=== PATIENT | male | born 1955 | race Hispanic/Latino ===

== ENCOUNTER 2017-05-11 13:06 | Inpatient (IN) | payer OTHER ==
[2017-05-09 15:53] VITALS: BMI 31.8
--- NOTE | 2017-05-16 20:09 | CP.PCM.HP ---
History of Present Illness - History of Present Illness History of Present Illness: 61 yo male with history of AFib, CAD, HLD, HTN, Gastric by pass, BPH, OA and Anemia had right THR on 05/09/2017 at [facility] after failing conservative management for 2 years. Patient was transferred to [facility] and was admitted in acute rehab for intensive physical therapy. Present on Admission - Present on Admission Any Indicators Present on Admission: No History of DVT/PE: No History of Uncontrolled Diabetes: No Urinary Catheter: No Decubitus Ulcer Present: No Review of Systems - Review of Systems All systems: reviewed and no additional remarkable complaints except (aside from those mentioned above, 12 point system review were negative by me) Past Patient History - Tetanus Immunizations Tetanus Immunization: Up to Date - Past Medical History & Family History Past Medical History?: Yes - Past Social History Smoking Status: Never Smoked Alcohol: None Drugs: Denies - CARDIAC Hx Cardiac Disorders: Yes ([place],) Hx Hypercholesterolemia: Yes Hx Hypertension: Yes Other/Comment: AFIB, stent - PULMONARY Hx Respiratory Disorders: Yes Hx Pneumonia: Yes (>15 years ago) - NEUROLOGICAL Hx Neurological Disorder: No - HEENT Hx HEENT Problems: No (WEARS RX GLASSES) - RENAL Hx Chronic Kidney Disease: No - ENDOCRINE/METABOLIC Hx Endocrine Disorders: No Hx Adrenal Cancer: No Hx Diabetes Insipidus: No Hx Diabetes Mellitus Type 1: No Hx Diabetes Mellitus Type 2: No Hx Hyperthyroidism: No Hx Hypothyroidism: No Hx Systemic Lupus Erythematosus: No - HEMATOLOGICAL/ONCOLOGICAL Hx Blood Disorders: Yes Hx Anemia: Yes (Iron Injection) Hx Blood Transfusions: Yes Hx Blood Transfusion Reaction: No Hx Bruising: No Hx Cancer: No Hx Chemotherapy: No Hx Cirrhosis: No Hx Gum Bleeding: No Hx Hemophilia: No Hx Hepatitis A: No Hx Hepatitis B: No Hx Hepatitis C: No Hx Leukemia: No Hx Metastesis: No Hx Shingles: No Hx Sickle Cell Disease: No Hx Unexplained Bleeding: No Hx von Willebrand's Disease: No - INTEGUMENTARY Hx Dermatological Problems: No Hx Basil Cell: No Hx Petersen: No Hx Cellulitis: No Hx Eczema: No Hx Melanoma: No Hx Psoriasis: No Hx Squamous Cell: No - MUSCULOSKELETAL/RHEUMATOLOGICAL Hx Falls: No Hx Osteoarthritis: Yes (R hip) Hx Unsteady Gait: Yes - GASTROINTESTINAL Hx Gastrointestinal Disorders: Yes (GASTRIC BAND,POLYPS,HIATAL HERNIA REPAIR,) Hx Gall Bladder Disease: Yes Hx Gastritis: Yes Hx Gastroesophageal Reflux: Yes Other/Comment: lap band surgery - GENITOURINARY/GYNECOLOGICAL Hx Genitourinary Disorders: Yes Hx Prostate Problems: Yes (enlarged,HAS PROSTATE BX.) - PSYCHIATRIC Hx Psychophysiologic Disorder: No Hx Substance Use: No - SURGICAL HISTORY Hx Surgeries: Yes (L KNEE ARTROSCOPY,HIATAL HERNIA REAPIR, 2 HEART STENTS.LAP BAND) Hx Coronary Stent: Yes (X2) - ANESTHESIA Hx Anesthesia: Yes Hx Anesthesia Reactions: No Hx Malignant Hyperthermia: No Has any member of the family had a problem w/ anesthesia?: No Meds Allergies/Adverse Reactions: Allergies Allergy/AdvReac Type Severity Reaction Status Date / Time shrimp Allergy ANAPHYLAXIS Verified 05/10/17 16:32 [facility] ANTISEPTIC Allergy Mild ITCHING Uncoded 05/09/17 14:40 Physical Exam - Constitutional Appears: No Acute Distress - Head Exam Head Exam: ATRAUMATIC - Eye Exam Eye Exam: absent: Scleral icterus - ENT Exam ENT Exam: Mucous Membranes Moist - Neck Exam Neck exam: Negative for: Meningismus - Respiratory Exam Respiratory Exam: absent: Rhonchi, Wheezes, Respiratory Distress - Cardiovascular Exam Cardiovascular Exam: REGULAR RHYTHM, +S1, +S2 - GI/Abdominal Exam GI & Abdominal Exam: Soft. absent: Tenderness - Rectal Exam Rectal Exam: Deferred - Extremities Exam Extremities exam: Positive for: pedal edema - Neurological Exam Neurological exam: Alert, Oriented x3 - Psychiatric Exam Psychiatric exam: Normal Affect - Skin Skin Exam: Dry, Intact Results - Vital Signs Recent Vital Signs: Last Vital Signs Temp Pulse Resp 20 05/16/17 18:02 BP Pulse Ox 98 05/16/17 18:02 Assessment & Plan (1) Status post total hip replacement, right Status: Acute Comment: admit in Acute Rehab. physiatry consult with Dr Herndon. refer to PT for evaluation and management. pain management with Codeine 30mg PO q 4hrs as needed (2) CAD (coronary artery disease) Status: Acute Comment: asymptomatic. continue ASA, Lipitor and Metoprolol (3) A-fib Status: Acute Comment: rate controlled at present but sometimes goes into RVR during therapy. continue Metoprolol 50mg PO q 8hrs. Coumadin 7.5mg PO daily. PT/INR in am. cardiology consult with Dr Tai (4) Anemia Status: Acute Comment: Hgb: 9.3, stable
[2017-05-16] MEDS ORDERED: Influenza Vaccine 18yr & older 0.5 ML/45 MCG SYR IM ONE (21:05)
[2017-05-17] MEDS ORDERED: Hydrogen Peroxide 237 ML SOL TP SCH (00:45)
[2017-05-17] MEDS: Pantoprazole 40 mg EC Tab PO SCH (05:37)
[2017-05-17 06:51] LABS: BASO % 0.4 % (0.0-2.0); EOS # 0.4 K/uL (0.0-0.7); EOS % 5.2 % (0.0-4.0); HEMATOCRIT 28.8 % (35.0-51.0); LYMPH # 1.1 K/uL (1.0-4.3); LYMPH % 14.5 % (20.0-40.0); MEAN CELL VOLUME 87.6 fl (80.0-94.0); MEAN CORPUSCULAR HEMOGLOBIN 28.5 pg (27.0-31.0); MEAN CORPUSCULAR HGB CONC 32.6 g/dL (33.0-37.0); MEAN PLATELET VOLUME 7.3 fl (7.2-11.7); MONO # 0.7 K/uL (0.0-0.8); MONO % 8.7 % (0.0-10.0); NEUT # 5.3 K/uL (1.8-7.0); NEUT % 71.2 % (50.0-75.0); NRBC % 0.3 % (0.0-0.0); RED CELL DISTRIBUTION WIDTH 18.7 % (11.5-14.5); WHITE BLOOD COUNT 7.5 K/uL (4.8-10.8)
[2017-05-17 06:55] LABS: BLOOD UREA NITROGEN 13 mg/dl (9-20); CALCIUM 8.4 mg/dL (8.4-10.2); CARBON DIOXIDE 28 mmol/L (22-30); CHLORIDE 101 mmol/L (98-107); GFR AFRICAN-AMERICAN > 60; GLUCOSE,RANDOM 106 mg/dL (75-110); POTASSIUM 4.1 MMOL/L (3.6-5.0); SODIUM 136 mmol/l (132-148)
[2017-05-17] MEDS: Hydrogen Peroxide 237 ML SOL TP SCH (06:59)
[2017-05-17] MEDS ORDERED: POLYETHYLENE GLYCOL 3350 17 GM/Dose PACKET PO SCH (09:00)
--- NOTE | 2017-05-17 12:12 | PSY.TMCNF ---
Nursing - Vital Signs Vital Signs (Last 8 hours): Vital Signs 05/17/17 05/17/17 05/17/17 05:37 08:21 08:28 Temperature 98.6 F Pulse Rate 74 85 Respiratory 20 Rate Blood Pressure 117/65 112/55 L 112/55 L O2 Sat by Pulse 98 Oximetry 05/17/17 09:00 Temperature 98.6 F Pulse Rate 85 Respiratory 20 Rate Blood Pressure 112/55 L O2 Sat by Pulse Oximetry Pain: 0 - Precautions: Precautions: Fall Prevention, Hip Precautions - Medications/Other Issues Comment: Pt is at low nutritional risk. No goals at this time- to be determined , if warranted, upon re-screen assessment. Re-screen assessment to be completed by 05/23/2017 per policy. - Consults Comment: Dr. Wilkinson - Skin Incision Site: Right hip Dressing Status: Clean, Dry, Intact Incision: Leni Intact, Sutures Intact, Inflamed Incision Line Treatment: (+) min SS drainage along I/L. Cleansed with 50/50 NS+ H2O2 and cover with DSD daily. - Toileting Toileting: Minimal Assistance - Bladder Management Bladder Pattern: Normal Voiding Method: Toilet, Urinal Bladder Management: Supervision Frequency of Accidents: 0 - Bowel Management Bowel Pattern: Normal Bowel Management: Supervision Frequency of Accidents: 0 - Transfers Transfers: Minimal Assistance - ADL's ADL's: Moderate Assistance - Pain Management Comments: Codeine and Tylenol PRN - Patient/Family Teaching Comments: None - Goals/Time Frame Comments: Per multidisciplinary care plan and goals - Provider Provider: Margot LAU RN CRRN Physical Therapy - Pain Management Techniques: Medication, Heat, Ice, Relaxation Techniques Occupational Therapy - Arousal/Attention/Orientation Patient Orientation: Person, Place, Time, Appropriate to Age, Appropriate to Situation - Pain Alleviating Techniques: Medication, Heat, Ice, Relaxation Techniques Nutrition - Current Diet Current Diet/ Supplement/ Feedings: Low fat/cholesterol, 2 gm Na diet - Appetite Percent Meal Consumed: 75-100% - Comments Comments: None - Assessment/Goals/Time Frame Assessment/Goals/Time Frame: Pt is at low nutritional risk. No goals at this time- to be determined, if warranted, upon re-screen assessment. Re-screen assessment to be completed by 05/23/2017 per policy. - Provider Provider: Mita Jaeger MS, RD Case Management - Discharge Plan Discharge Plan: Home alone Rehabilitation Plan - Treatment Plan Treatment Plan: Physical Therapy, Occupational Therapy, Dietary, Patient/Family Education - Recommendation Recommendation: Physical Therapy, Occupational Therapy, Dietary, Patient/Family Education - Discharge Plan Discharge to: Home
--- NOTE | 2017-05-17 12:53 | CP.PCM.PN ---
Subjective - Date & Time of Evaluation Date of Evaluation: 05/17/17 Time of Evaluation: 12:15 - Subjective Subjective: Pt is doing well, participated with PT Pain controlled Denies CP no SOB no cough no abd pain + constipationno bleeding INR today 2.9 Objective - Vital Signs/Intake and Output Vital Signs (last 24 hours): Temp Pulse Resp BP Pulse Ox 98.6 F 85 20 112/55 L 98 05/17/17 09:00 05/17/17 09:00 05/17/17 09:00 05/17/17 09:00 05/17/17 08:21 - Medications Medications: Current Medications Acetaminophen (Tylenol 325mg Tab) 325 mg PO Q4H PRN PRN Reason: Pain, moderate (4-7) Aspirin (Ecotrin) 81 mg PO DAILY [facility] Last Admin: 05/17/17 08:27 Dose: 81 mg Atorvastatin Calcium (Lipitor) 10 mg PO DIN [facility] Last Admin: 05/16/17 22:06 Dose: 10 mg Codeine Sulfate (Codeine) 30 mg PO Q4 PRN PRN Reason: Pain, moderate (4-7) Docusate Sodium (Colace) 100 mg PO TID [facility] Last Admin: 05/17/17 08:28 Dose: 100 mg Ferrous Sulfate (Feosol) 325 mg PO BID [facility] Finasteride (Proscar) 5 mg PO DAILY [facility] Last Admin: 05/17/17 08:31 Dose: 5 mg Folic Acid (Folic Acid) 2 mg PO DAILY [facility] Last Admin: 05/17/17 08:30 Dose: 2 mg Furosemide (Lasix) 40 mg PO DAILY [facility] Last Admin: 05/17/17 08:28 Dose: 40 mg Hydrogen Peroxide (Hydrogen Peroxide 237ml) 237 ml TP DAILY@0600 [facility] Last Admin: 05/17/17 06:59 Dose: 237 ml Metoprolol Tartrate (Lopressor) 50 mg PO Q8 [facility] Last Admin: 05/17/17 05:37 Dose: 50 mg Pantoprazole Sodium (Protonix Ec Tab) 40 mg PO 0600 [facility] Last Admin: 05/17/17 05:37 Dose: 40 mg Polyethylene Glycol (Miralax) 17 gm PO DAILY [facility] Tamsulosin HCl (Flomax) 0.4 mg PO DAILY [facility] Last Admin: 05/17/17 08:27 Dose: 0.4 mg Warfarin Sodium (Coumadin) 6 mg PO QD5 [facility] PRN Reason: Protocol Stop: 05/17/17 17:01 - Labs Labs: 05/17/17 06:00 05/17/17 06:00 PT 30.4 Seconds (9.8-13.1) H 05/17/17 06:00 INR 2.9 (0.9-1.2) H 05/17/17 06:00 - Constitutional Appears: No Acute Distress - Head Exam Head Exam: NORMAL INSPECTION, NORMOCEPHALIC - Eye Exam Eye Exam: EOMI, Normal appearance, PERRL Pupil Exam: NORMAL ACCOMODATION - ENT Exam ENT Exam: Mucous Membranes Moist, Normal External Ear Exam - Neck Exam Neck Exam: Full ROM. absent: Meningismus - Respiratory Exam Respiratory Exam: Respiratory Distress. absent: NORMAL BREATHING PATTERN - Cardiovascular Exam Cardiovascular Exam: Irregular Rhythm, +S1, +S2 - GI/Abdominal Exam GI & Abdominal Exam: Soft, Normal Bowel Sounds. absent: Tenderness - Extremities Exam Extremities Exam: Normal Capillary Refill. absent: Calf Tenderness Additional comments: Right hip with dressing - Back Exam Back Exam: Full ROM. absent: CVA tenderness (L), CVA tenderness (R) - Neurological Exam Neurological Exam: Alert, Awake, CN II-XII Intact, Oriented x3 Neuro motor strength exam: Left Upper Extremity: 5, Right Upper Extremity: 5, Left Lower Extremity: 5, Right Lower Extremity: 5 - Psychiatric Exam Psychiatric exam: Normal Affect, Normal Mood - Skin Skin Exam: Dry, Normal Color, Warm Assessment and Plan (1) Status post total hip replacement, right Status: Acute (2) Chronic atrial fibrillation Status: Chronic (3) CAD (coronary artery disease) Status: Chronic (4) Anemia Status: Chronic (5) BPH (benign prostatic hyperplasia) Status: Acute (6) DVT prophylaxis Status: Acute - Assessment and Plan (Free Text) Assessment: 61 y/o gent with hx of recent THR , right, Hx of A Fib on Coumadin, Chronic Anemia, HTN, CAD s/p Stent, Obesity s/p Lap Band , was admitted to Acute Rehab for Physical and Occupation therapy post THR> (1) Status post total hip replacement, right Status: Acute Psysiatry consult PT/OT Pain mgt INcentive spirometry (2) Chronic atrial fibrillation Status: Chronic Rate controlled Cardio consult cont Coumadin INR toady 2.9, will decrease Coumadin dose to 6 mg Monitor INR (3) CAD (coronary artery disease) Status: Chronic cont ASA, BB, Statin (4) Anemia, acute on chronic, ( worsned by recent surgery ) Status: Chronic start Ferrous cont FA (5) BPH (benign prostatic hyperplasia) Status: Acute cont Flomax and Proscar (6) DVT prophylaxis Pt is on Coumadin
--- NOTE | 2017-05-17 13:14 | CP.PCM.CON ---
Past Patient History - Tetanus Immunizations Tetanus Immunization: Up to Date - Past Medical History & Family History Past Medical History?: Yes - Past Social History Smoking Status: Never Smoked Alcohol: None Drugs: Denies - CARDIAC Hx Cardiac Disorders: Yes ([place],) Hx Hypercholesterolemia: Yes Hx Hypertension: Yes Other/Comment: AFIB, stent - PULMONARY Hx Respiratory Disorders: Yes Hx Pneumonia: Yes (>15 years ago) - NEUROLOGICAL Hx Neurological Disorder: No - HEENT Hx HEENT Problems: No (WEARS RX GLASSES) - RENAL Hx Chronic Kidney Disease: No - ENDOCRINE/METABOLIC Hx Endocrine Disorders: No Hx Adrenal Cancer: No Hx Diabetes Insipidus: No Hx Diabetes Mellitus Type 1: No Hx Diabetes Mellitus Type 2: No Hx Hyperthyroidism: No Hx Hypothyroidism: No Hx Systemic Lupus Erythematosus: No - HEMATOLOGICAL/ONCOLOGICAL Hx Blood Disorders: Yes Hx Anemia: Yes (Iron Injection) Hx Blood Transfusions: Yes Hx Blood Transfusion Reaction: No Hx Bruising: No Hx Cancer: No Hx Chemotherapy: No Hx Cirrhosis: No Hx Gum Bleeding: No Hx Hemophilia: No Hx Hepatitis A: No Hx Hepatitis B: No Hx Hepatitis C: No Hx Leukemia: No Hx Metastesis: No Hx Shingles: No Hx Sickle Cell Disease: No Hx Unexplained Bleeding: No Hx von Willebrand's Disease: No - INTEGUMENTARY Hx Dermatological Problems: No Hx Basil Cell: No Hx Petersen: No Hx Cellulitis: No Hx Eczema: No Hx Melanoma: No Hx Psoriasis: No Hx Squamous Cell: No - MUSCULOSKELETAL/RHEUMATOLOGICAL Hx Falls: No Hx Osteoarthritis: Yes (R hip) Hx Unsteady Gait: Yes - GASTROINTESTINAL Hx Gastrointestinal Disorders: Yes (GASTRIC BAND,POLYPS,HIATAL HERNIA REPAIR,) Hx Gall Bladder Disease: Yes Hx Gastritis: Yes Hx Gastroesophageal Reflux: Yes Other/Comment: lap band surgery - GENITOURINARY/GYNECOLOGICAL Hx Genitourinary Disorders: Yes Hx Prostate Problems: Yes (enlarged,HAS PROSTATE BX.) - PSYCHIATRIC Hx Psychophysiologic Disorder: No Hx Substance Use: No - SURGICAL HISTORY Hx Surgeries: Yes (L KNEE ARTROSCOPY,HIATAL HERNIA REAPIR, 2 HEART STENTS.LAP BAND) Hx Coronary Stent: Yes (X2) - ANESTHESIA Hx Anesthesia: Yes Hx Anesthesia Reactions: No Hx Malignant Hyperthermia: No Has any member of the family had a problem w/ anesthesia?: No Meds Allergies/Adverse Reactions: Allergies Allergy/AdvReac Type Severity Reaction Status Date / Time shrimp Allergy ANAPHYLAXIS Verified 05/10/17 16:32 [facility] ANTISEPTIC Allergy Mild ITCHING Uncoded 05/09/17 14:40 - Medications Medications: Current Medications Acetaminophen (Tylenol 325mg Tab) 325 mg PO Q4H PRN PRN Reason: Pain, moderate (4-7) Aspirin (Ecotrin) 81 mg PO DAILY [facility] Last Admin: 05/17/17 08:27 Dose: 81 mg Atorvastatin Calcium (Lipitor) 10 mg PO DIN [facility] Last Admin: 05/16/17 22:06 Dose: 10 mg Codeine Sulfate (Codeine) 30 mg PO Q4 PRN PRN Reason: Pain, moderate (4-7) Docusate Sodium (Colace) 100 mg PO TID [facility] Last Admin: 05/17/17 08:28 Dose: 100 mg Ferrous Sulfate (Feosol) 325 mg PO BID [facility] Finasteride (Proscar) 5 mg PO DAILY [facility] Last Admin: 05/17/17 08:31 Dose: 5 mg Folic Acid (Folic Acid) 2 mg PO DAILY [facility] Last Admin: 05/17/17 08:30 Dose: 2 mg Furosemide (Lasix) 40 mg PO DAILY [facility] Last Admin: 05/17/17 08:28 Dose: 40 mg Hydrogen Peroxide (Hydrogen Peroxide 237ml) 237 ml TP DAILY@0600 [facility] Last Admin: 05/17/17 06:59 Dose: 237 ml Metoprolol Tartrate (Lopressor) 50 mg PO Q8 [facility] Last Admin: 05/17/17 05:37 Dose: 50 mg Pantoprazole Sodium (Protonix Ec Tab) 40 mg PO 0600 [facility] Last Admin: 05/17/17 05:37 Dose: 40 mg Polyethylene Glycol (Miralax) 17 gm PO DAILY [facility] Tamsulosin HCl (Flomax) 0.4 mg PO DAILY [facility] Last Admin: 05/17/17 08:27 Dose: 0.4 mg Warfarin Sodium (Coumadin) 6 mg PO QD5 [facility] PRN Reason: Protocol Stop: 05/17/17 17:01 Results - Vital Signs Recent Vital Signs: Last Vital Signs Temp 98.6 F 05/17/17 09:00 Pulse 85 05/17/17 09:00 Resp 20 05/17/17 09:00 BP 112/55 L 05/17/17 09:00 Pulse Ox 98 05/17/17 08:21 - Labs Result Diagrams: 05/17/17 06:00 05/17/17 06:00 Labs: Laboratory Results - last 24 hr 05/17/17 05/17/17 05/17/17 06:00 06:00 06:00 WBC 7.5 RBC 3.29 L Hgb 9.4 L Hct 28.8 L MCV 87.6 MCH 28.5 MCHC 32.6 L RDW 18.7 H Plt Count 264 MPV 7.3 Neut % (Auto) 71.2 Lymph % (Auto) 14.5 L [place] % (Auto) 8.7 Eos % (Auto) 5.2 H Baso % (Auto) 0.4 Neut # 5.3 Lymph # 1.1 [place] # 0.7 Eos # 0.4 Baso # 0.0 PT 30.4 H INR 2.9 H Sodium 136 Potassium 4.1 Chloride 101 Carbon Dioxide 28 Anion Gap 11 BUN 13 Creatinine 0.7 L Est GFR ( Amer) > 60 Est GFR (Non-Af Amer) > 60 Random Glucose 106 Calcium 8.4
--- NOTE | 2017-05-17 19:32 | CP.PCM.PN ---
Subjective - Date & Time of Evaluation Date of Evaluation: 05/17/17 Time of Evaluation: 12:00 - Subjective Subjective: NO HIP PAIN Objective - Vital Signs/Intake and Output Vital Signs (last 24 hours): Temp Pulse Resp BP Pulse Ox 98.6 F 86 20 118/86 98 05/17/17 09:00 05/17/17 13:41 05/17/17 09:00 05/17/17 13:16 05/17/17 08:21 - Medications Medications: Current Medications Acetaminophen (Tylenol 325mg Tab) 325 mg PO Q4H PRN PRN Reason: Pain, moderate (4-7) Last Admin: 05/17/17 17:34 Dose: 325 mg Aspirin (Ecotrin) 81 mg PO DAILY [facility] Last Admin: 05/17/17 08:27 Dose: 81 mg Atorvastatin Calcium (Lipitor) 10 mg PO DIN [facility] Last Admin: 05/17/17 17:09 Dose: 10 mg Codeine Sulfate (Codeine) 30 mg PO Q4 PRN PRN Reason: Pain, moderate (4-7) Docusate Sodium (Colace) 100 mg PO TID [facility] Last Admin: 05/17/17 17:09 Dose: 100 mg Ferrous Sulfate (Feosol) 325 mg PO BID [facility] Last Admin: 05/17/17 17:11 Dose: 325 mg Finasteride (Proscar) 5 mg PO DAILY [facility] Last Admin: 05/17/17 08:31 Dose: 5 mg Folic Acid (Folic Acid) 2 mg PO DAILY [facility] Last Admin: 05/17/17 08:30 Dose: 2 mg Furosemide (Lasix) 40 mg PO DAILY [facility] Last Admin: 05/17/17 08:28 Dose: 40 mg Hydrogen Peroxide (Hydrogen Peroxide 237ml) 237 ml TP DAILY@0600 [facility] Last Admin: 05/17/17 06:59 Dose: 237 ml Metoprolol Tartrate (Lopressor) 50 mg PO Q8 [facility] Last Admin: 05/17/17 13:16 Dose: 50 mg Pantoprazole Sodium (Protonix Ec Tab) 40 mg PO 0600 [facility] Last Admin: 05/17/17 05:37 Dose: 40 mg Polyethylene Glycol (Miralax) 17 gm PO DAILY [facility] Tamsulosin HCl (Flomax) 0.4 mg PO DAILY [facility] Last Admin: 05/17/17 08:27 Dose: 0.4 mg - Labs Labs: 05/17/17 06:00 05/17/17 06:00 PT 30.4 Seconds (9.8-13.1) H 05/17/17 06:00 INR 2.9 (0.9-1.2) H 05/17/17 06:00 - Head Exam Head Exam: ATRAUMATIC, NORMAL INSPECTION - Eye Exam Eye Exam: Normal appearance Pupil Exam: NORMAL ACCOMODATION - ENT Exam ENT Exam: Normal Exam - Respiratory Exam Respiratory Exam: NORMAL BREATHING PATTERN - Cardiovascular Exam Cardiovascular Exam: REGULAR RHYTHM - GI/Abdominal Exam GI & Abdominal Exam: Normal Bowel Sounds - Rectal Exam Rectal Exam: NORMAL INSPECTION - Extremities Exam Extremities Exam: Normal Inspection Additional comments: right leg weakness - Neurological Exam Neurological Exam: Alert, Awake Neuro motor strength exam: Left Upper Extremity: 4, Right Upper Extremity: 4, Left Lower Extremity: 4, Right Lower Extremity: 3 - Psychiatric Exam Psychiatric exam: Normal Affect, Normal Mood - Skin Skin Exam: Normal Color Assessment and Plan (1) BPH (benign prostatic hyperplasia) Status: Acute (2) DVT prophylaxis Status: Acute (3) CAD (coronary artery disease) Status: Chronic (4) Chronic atrial fibrillation Status: Chronic (5) Multiple contusions Status: Acute (6) Status post total hip replacement, right Status: Acute (7) Anemia Status: Chronic Physiatry Overall Plan of Care - Overall Plan of Care Estimated Length of Stay in Weeks: 2 Rehab Impairment: Mobility, Gait Etiologic Diagnosis: Hip/Knee Surgery Rehab/Medical Prognosis: Fair - Anticipated Interventions Physical Therapy:: Yes Occupational Therapy:: Yes Recreational Therapy:: Yes - Therapy Goals Bed Mobility: Independent Ambulation: Independent Functional Positional Changes:: Independent - Discharge Plan Identification of Barriers to Discharge: Home Situation Discharge Destination: Home
[2017-05-18] MEDS: Pantoprazole 40 mg EC Tab PO SCH (06:19)
[2017-05-18] MEDS: Hydrogen Peroxide 237 ML SOL TP SCH (06:19)
--- NOTE | 2017-05-18 08:20 | CON ---
PHYSIATRY CONSULTATION DATE: 05/17/2017 The patient was seen 10:00 a.m. in the morning. HISTORY OF PRESENT ILLNESS: The patient is a 61-year-old white male with status post right total hip replacement with a history of osteoarthritis, ICD code of 08.51, also history of myocardial infarction, atrial fibrillation, coronary artery disease, history of anemia, gastritis, and hyperlipidemia. SOCIAL HISTORY: No history of drinking. No history of smoking. FAMILY HISTORY: Noncontributory. ALLERGIES: SHRIMP AND HOSPITAL ANTISEPTIC. PRECAUTIONS: Total hip precautions with weightbearing as tolerated as per discharge summary. MEDICATIONS: As per medical physician. 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 REVIEW OF SYSTEMS: Right lower extremity weakness. No other acute complaints at present. PHYSICAL EXAMINATION: VITAL SIGNS: Stable. NECK: Supple. CHEST: Symmetrical. HEART: Sounds S1 and S2. ABDOMEN: Area is benign. EXTREMITIES: No clubbing, cyanosis, or edema. NEUROLOGICAL: Short and long-term memory intact. Cranial nerves II through XII intact. Motor, both upper extremities and left lower extremity, tone normal, range of motion is functional, muscle strength is good. Right lower extremity, tone normal, range of motion is functional, muscle strength is 3+/5. Sensation to pin prick and light touch intact. Deep tendon reflexes 2+ bilaterally. Other systems are negative. IMPRESSION: For the patient is osteoarthritis of the right hip status post right total hip replacement, history of myocardial infarction, atrial fibrillation, coronary artery disease, anemia, gastritis, and hyperlipidemia. Estimated length of stay for this patient is 2 weeks. Anticipated discharge plan is go back to live at home with supportive services. Treatment plan for the patient is physical therapy, occupational therapy, recreational therapy, good range of motion, strengthening, transfers, ambulation, and gait training. PLAN: Is for discharge home, and also to write overall plan of care of the patient. Sathish Wilkinson MD
[2017-05-18] MEDS: POLYETHYLENE GLYCOL 3350 17 GM/Dose PACKET PO SCH (08:24)
[2017-05-19] MEDS: Pantoprazole 40 mg EC Tab PO SCH (06:56)
[2017-05-19] MEDS: Hydrogen Peroxide 237 ML SOL TP SCH (06:59)
[2017-05-19] MEDS: POLYETHYLENE GLYCOL 3350 17 GM/Dose PACKET PO SCH (08:35)
--- NOTE | 2017-05-19 15:03 | PN ---
SUBJECTIVE: The patient is feeling fine, no acute complaints at present. PHYSICAL EXAMINATION VITAL SIGNS: Stable. NECK: Supple. CHEST: Symmetrical. HEART: S1 and S2. ABDOMEN: Benign. EXTREMITIES: No clubbing, cyanosis or edema. IMPRESSION: Right total hip replacement secondary to osteoarthritis, atrial fibrillation, coronary artery disease, anemia. PLAN: To continue with physical and occupational therapy for range of motion, strengthening, transfers, ambulation, gait training. Monitor skin and blood pressure. Sathish Wilkinson MD
--- NOTE | 2017-05-19 15:36 | CP.PCM.PN ---
Subjective - Date & Time of Evaluation Date of Evaluation: 05/19/17 Time of Evaluation: 13:00 - Subjective Subjective: Patient states that he is feeling well today. No complaints. Denies any chest pain, sob, n/v/d. Says Tolerating physical therapy/occupational therapy well. He is able to ambulate with the assistance of a walker. Objective - Vital Signs/Intake and Output Vital Signs (last 24 hours): Temp Pulse Resp BP Pulse Ox 97.7 F 100 H 18 106/73 99 05/19/17 08:33 05/19/17 13:09 05/19/17 08:33 05/19/17 13:09 05/19/17 08:33 - Medications Medications: Current Medications Acetaminophen (Tylenol 325mg Tab) 325 mg PO Q4H PRN PRN Reason: Pain, moderate (4-7) Last Admin: 05/19/17 13:07 Dose: 325 mg Aspirin (Ecotrin) 81 mg PO DAILY [facility] Last Admin: 05/19/17 09:48 Dose: 81 mg Atorvastatin Calcium (Lipitor) 10 mg PO DIN [facility] Last Admin: 05/18/17 16:57 Dose: 10 mg Codeine Sulfate (Codeine) 30 mg PO Q4 PRN PRN Reason: Pain, severe (8-10) Docusate Sodium (Colace) 100 mg PO TID [facility] Last Admin: 05/19/17 13:08 Dose: 100 mg Ferrous Sulfate (Feosol) 325 mg PO BID [facility] Last Admin: 05/19/17 08:15 Dose: Not Given Finasteride (Proscar) 5 mg PO DAILY [facility] Last Admin: 05/19/17 08:35 Dose: 5 mg Folic Acid (Folic Acid) 2 mg PO DAILY [facility] Last Admin: 05/19/17 08:34 Dose: 2 mg Furosemide (Lasix) 40 mg PO DAILY [facility] Last Admin: 05/19/17 08:34 Dose: 40 mg Hydrogen Peroxide (Hydrogen Peroxide 237ml) 237 ml TP DAILY@0600 [facility] Last Admin: 05/19/17 06:59 Dose: 237 ml Metoprolol Tartrate (Lopressor) 50 mg PO Q8 [facility] Last Admin: 05/19/17 13:09 Dose: 50 mg Pantoprazole Sodium (Protonix Ec Tab) 40 mg PO 0600 [facility] Last Admin: 05/19/17 06:56 Dose: 40 mg Polyethylene Glycol (Miralax) 17 gm PO DAILY [facility] Last Admin: 05/19/17 08:35 Dose: 17 gm Tamsulosin HCl (Flomax) 0.4 mg PO DAILY [facility] Last Admin: 05/19/17 08:34 Dose: 0.4 mg Warfarin Sodium (Coumadin) 6 mg PO QD5 [facility] PRN Reason: Protocol Stop: 05/19/17 17:01 - Labs Labs: 05/17/17 06:00 05/17/17 06:00 PT 25.2 Seconds (9.8-13.1) H D 05/19/17 07:30 INR 2.4 (0.9-1.2) H D 05/19/17 07:30 - Additional Findings Additional findings: EXAM: Vitals stable and reviewed GEN: WDWN, alert, cooperative HEENT: NCAT, PERRL, EOMI Neck: supple, no lymphadenopathy CARDIO: +S1S2, RRR, NO M/R/G LUNG: CTAB, NO W/R/R ABD: soft, NT, ND, no masses, no HSM EXT: no edema, pedal pulses Neuro: AAOx3, Strength equal, bilateral UE/LE Psych: normal mood, normal affect Assessment and Plan - Assessment and Plan (Free Text) Assessment: 61 y/o gent with hx of recent THR , right, Hx of A Fib on Coumadin, Chronic Anemia, HTN, CAD s/p Stent, Obesity s/p Lap Band , was admitted to Acute Rehab for Physical and Occupation therapy post THR> (1) Status post total hip replacement, right Status: Acute Physiatry consult PT/OT Pain mgt- pain is well controlled Patient is using incentive spirometry (2) Chronic atrial fibrillation Status: Chronic Rate controlled Cardio consult cont Coumadin at 6 mg; was held yesterday due to supratherapeutic INR Monitor INR daily (3) CAD (coronary artery disease) Status: Chronic Continue ASA Beta terrell Statin (4) Anemia, acute on chronic, ( worsened by recent surgery ) Status: Chronic start Ferrous cont FA (5) BPH (benign prostatic hyperplasia) Status: Acute cont Flomax and Proscar (6) DVT prophylaxis Continue Coumadin- patient has therapeutic INR.
[2017-05-20] MEDS: Hydrogen Peroxide 237 ML SOL TP SCH (06:45)
[2017-05-20] MEDS: Pantoprazole 40 mg EC Tab PO SCH (06:45)
[2017-05-20] MEDS: POLYETHYLENE GLYCOL 3350 17 GM/Dose PACKET PO SCH (08:29)
--- NOTE | 2017-05-20 10:23 | CP.PCM.PN ---
Subjective - Date & Time of Evaluation Date of Evaluation: 05/20/17 Time of Evaluation: 10:23 - Subjective Subjective: no complaints no cp or sob hr controlled Objective - Vital Signs/Intake and Output Vital Signs (last 24 hours): Temp Pulse Resp BP Pulse Ox 98.2 F 65 20 141/63 100 05/20/17 08:26 05/20/17 08:05 05/20/17 08:05 05/20/17 08:31 05/20/17 08:05 - Medications Medications: Current Medications Acetaminophen (Tylenol 325mg Tab) 325 mg PO Q4H PRN PRN Reason: Pain, moderate (4-7) Last Admin: 05/20/17 08:26 Dose: 325 mg Aspirin (Ecotrin) 81 mg PO DAILY [facility] Last Admin: 05/20/17 08:32 Dose: 81 mg Atorvastatin Calcium (Lipitor) 10 mg PO DIN [facility] Last Admin: 05/19/17 17:06 Dose: 10 mg Codeine Sulfate (Codeine) 30 mg PO Q4 PRN PRN Reason: Pain, severe (8-10) Docusate Sodium (Colace) 100 mg PO TID [facility] Last Admin: 05/20/17 08:31 Dose: 100 mg Ferrous Sulfate (Feosol) 325 mg PO BID [facility] Last Admin: 05/20/17 08:29 Dose: Not Given Finasteride (Proscar) 5 mg PO DAILY [facility] Last Admin: 05/20/17 08:33 Dose: 5 mg Folic Acid (Folic Acid) 2 mg PO DAILY [facility] Last Admin: 05/20/17 08:33 Dose: 2 mg Furosemide (Lasix) 40 mg PO DAILY [facility] Last Admin: 05/20/17 08:31 Dose: 40 mg Hydrogen Peroxide (Hydrogen Peroxide 237ml) 237 ml TP DAILY@0600 [facility] Last Admin: 05/20/17 06:45 Dose: 237 ml Metoprolol Tartrate (Lopressor) 50 mg PO Q6 [facility] Pantoprazole Sodium (Protonix Ec Tab) 40 mg PO 0600 [facility] Last Admin: 05/20/17 06:45 Dose: 40 mg Polyethylene Glycol (Miralax) 17 gm PO DAILY [facility] Last Admin: 05/20/17 08:29 Dose: 17 gm Tamsulosin HCl (Flomax) 0.4 mg PO DAILY [facility] Last Admin: 05/20/17 08:32 Dose: 0.4 mg - Labs Labs: 05/17/17 06:00 05/17/17 06:00 PT 21.9 Seconds (9.8-13.1) H 05/20/17 08:15 INR 2.1 (0.9-1.2) H 05/20/17 08:15 - Constitutional Appears: Well - Head Exam Head Exam: ATRAUMATIC, NORMAL INSPECTION, NORMOCEPHALIC - Eye Exam Eye Exam: EOMI, Normal appearance, PERRL. absent: Conjunctival injection, Nystagmus, Periorbital swelling, Periorbital tenderness, Scleral icterus Pupil Exam: NORMAL ACCOMODATION, PERRL - ENT Exam ENT Exam: Mucous Membranes Moist, Normal Exam. absent: Mucous Membranes Dry, Normal External Ear Exam, Normal Oropharynx, TM's Normal Bilaterally - Neck Exam Neck Exam: Full ROM, Normal Inspection. absent: Lymphadenopathy, Meningismus, Tenderness, Thyromegaly - Respiratory Exam Respiratory Exam: Clear to Ausculation Bilateral, NORMAL BREATHING PATTERN. absent: Accessory Muscle Use, Chest Wall Tenderness, Decreased Breath Sounds, Prolonged Expiratory Phase, Rales, Rhonchi, Wheezes, Respiratory Distress, Stridor - Cardiovascular Exam Cardiovascular Exam: Irregular Rhythm, +S1, +S2, Murmur. absent: Bradycardia, Tachycardia, Clicks, Diastolic murmur, Gallop, REGULAR RHYTHM, JVD, RRR, Rubs, + S4 - GI/Abdominal Exam GI & Abdominal Exam: Soft, Normal Bowel Sounds. absent: Bruit, Distended, Firm , Guarding, Rigid, Tenderness, Diminished Bowel Sounds, Hernia, Hyperactive Bowel Sounds, Hypoactive Bowel Sounds, Organomegaly, Pulsatile Mass, Rebound, Mass - Rectal Exam Rectal Exam: Deferred. absent: Black Stool, Bloody Stool, Hemorrhoids, Fecal Impaction - Extremities Exam Extremities Exam: Full ROM, Normal Capillary Refill, Pedal Edema. absent: Calf Tenderness, Joint Swelling, Normal Inspection, Tenderness - Back Exam Back Exam: NORMAL INSPECTION. absent: CVA tenderness (L), CVA tenderness (R), Full ROM, muscle spasm, paraspinal tenderness, rash noted, tenderness, vertebral tenderness - Neurological Exam Neurological Exam: Alert, Awake, CN II-XII Intact, Normal Gait, Oriented x3. absent: Abnormal Gait, Altered, Motor Sensory Deficit, Reflexes Normal - Psychiatric Exam Psychiatric exam: Normal Affect, Normal Mood. absent: Agitated, Anxious, Depressed, Flat Affect, Homicidal Ideation, Manic, Suicidal Ideation - Skin Skin Exam: Dry, Intact, Normal Color, Warm. absent: Abrasion, Cyanosis, Diaphoretic, Erythema, Mottled, Pallor, Pallor, Petechiae, Rash, Urticaria, Vesicles Assessment and Plan (1) Poor iron absorption Status: Acute (2) CAD (coronary artery disease) Status: Chronic (3) Chronic atrial fibrillation Status: Chronic (4) Status post total hip replacement, right Status: Acute (5) Anemia Status: Chronic - Assessment and Plan (Free Text) Plan: NO CHANGES TO MEDS. DOING WELL. WILL SIGN OFF. PLEASE RECONSULT IF NEEDED. THANK YOU.
[2017-05-21] MEDS: Pantoprazole 40 mg EC Tab PO SCH (06:31)
[2017-05-21] MEDS: Hydrogen Peroxide 237 ML SOL TP SCH (06:41)
[2017-05-21] MEDS: POLYETHYLENE GLYCOL 3350 17 GM/Dose PACKET PO SCH (08:39)
[2017-05-22] MEDS: Pantoprazole 40 mg EC Tab PO SCH (06:15)
[2017-05-22] MEDS: Hydrogen Peroxide 237 ML SOL TP SCH (06:20)
[2017-05-22] MEDS: POLYETHYLENE GLYCOL 3350 17 GM/Dose PACKET PO SCH (08:30)
--- NOTE | 2017-05-22 14:34 | CP.PCM.PN ---
Subjective - Date & Time of Evaluation Date of Evaluation: 05/22/17 Time of Evaluation: 11:00 - Subjective Subjective: Pt seen and examined. Denied any complaint. Objective - Vital Signs/Intake and Output Vital Signs (last 24 hours): Temp Pulse Resp BP Pulse Ox 97.6 F 85 18 108/72 99 05/22/17 07:31 05/22/17 12:17 05/22/17 07:31 05/22/17 12:17 05/22/17 07:31 - Medications Medications: Current Medications Acetaminophen (Tylenol 325mg Tab) 325 mg PO Q4H PRN PRN Reason: Pain, moderate (4-7) Last Admin: 05/22/17 13:27 Dose: 325 mg Aspirin (Ecotrin) 81 mg PO DAILY [facility] Last Admin: 05/22/17 08:30 Dose: 81 mg Atorvastatin Calcium (Lipitor) 10 mg PO DIN [facility] Last Admin: 05/21/17 17:11 Dose: 10 mg Codeine Sulfate (Codeine) 30 mg PO Q4 PRN PRN Reason: Pain, severe (8-10) Docusate Sodium (Colace) 100 mg PO TID [facility] Last Admin: 05/22/17 12:18 Dose: 100 mg Finasteride (Proscar) 5 mg PO DAILY [facility] Last Admin: 05/22/17 08:29 Dose: 5 mg Folic Acid (Folic Acid) 2 mg PO DAILY [facility] Last Admin: 05/22/17 08:29 Dose: 2 mg Furosemide (Lasix) 40 mg PO DAILY [facility] Last Admin: 05/22/17 08:29 Dose: 40 mg Hydrogen Peroxide (Hydrogen Peroxide 237ml) 237 ml TP DAILY@0600 [facility] Last Admin: 05/22/17 06:20 Dose: 237 ml Metoprolol Tartrate (Lopressor) 50 mg PO Q6 [facility] Last Admin: 05/22/17 12:17 Dose: 50 mg Pantoprazole Sodium (Protonix Ec Tab) 40 mg PO 0600 [facility] Last Admin: 05/22/17 06:15 Dose: 40 mg Polyethylene Glycol (Miralax) 17 gm PO DAILY [facility] Last Admin: 05/22/17 08:30 Dose: 17 gm Tamsulosin HCl (Flomax) 0.4 mg PO DAILY [facility] Last Admin: 05/22/17 08:30 Dose: 0.4 mg Warfarin Sodium (Coumadin) 2.5 mg PO 1700 [facility] Stop: 05/22/17 17:01 Warfarin Sodium (Coumadin) 4 mg PO 1700 [facility] Stop: 05/22/17 17:01 - Labs Labs: 05/17/17 06:00 05/17/17 06:00 PT 19.6 Seconds (9.8-13.1) H 05/22/17 06:45 INR 1.9 (0.9-1.2) H 05/22/17 06:45 - Constitutional Appears: No Acute Distress - Head Exam Head Exam: ATRAUMATIC - Eye Exam Eye Exam: absent: Scleral icterus - ENT Exam ENT Exam: Mucous Membranes Moist - Neck Exam Neck Exam: absent: Meningismus - Respiratory Exam Respiratory Exam: absent: Rhonchi, Wheezes, Respiratory Distress - Cardiovascular Exam Cardiovascular Exam: REGULAR RHYTHM, +S1, +S2 - GI/Abdominal Exam GI & Abdominal Exam: Soft. absent: Tenderness - Rectal Exam Rectal Exam: Deferred - Neurological Exam Neurological Exam: Alert, Oriented x3 - Psychiatric Exam Psychiatric exam: Normal Affect - Skin Skin Exam: Dry, Intact Assessment and Plan (1) Status post total hip replacement, right Status: Acute (2) CAD (coronary artery disease) Status: Chronic (3) A-fib Status: Deleted (4) Anemia Status: Chronic - Assessment and Plan (Free Text) Assessment: 61 yo male with history of AFib, CAD, HLD, HTN, Gastric by pass, BPH, OA and [place]emia [place] [facility] [place] management for 2 years. Patient was transferred to [facility] and was admitted in acute rehab for intensive physical therapy. (1) Status post total hip replacement, right continue PT/OT admitted doing well with therapy (2) CAD (coronary artery disease) asymptomatic. continue ASA, Lipitor and Metoprolol (3) A-fib rate controlled at present but sometimes goes into RVR during therapy. continue Metoprolol 50mg PO q 8hrs. Coumadin 6.5mg PO daily. PT/INR in am. pt claimed he has been on Coumadin for 17 yrs and has been taking it 10mg PO daily except Monday and Monday (4) Anemia Hgb: 9.4, stable
[2017-05-23] MEDS: Pantoprazole 40 mg EC Tab PO SCH (06:19)
[2017-05-23] MEDS: Hydrogen Peroxide 237 ML SOL TP SCH (06:24)
[2017-05-23] MEDS: POLYETHYLENE GLYCOL 3350 17 GM/Dose PACKET PO SCH (08:22)
--- NOTE | 2017-05-23 17:56 | CP.PCM.PN ---
Subjective - Date & Time of Evaluation Date of Evaluation: 05/21/17 Time of Evaluation: 17:00 - Subjective Subjective: no acute neck or back pain Objective - Vital Signs/Intake and Output Vital Signs (last 24 hours): Temp Pulse Resp BP Pulse Ox 98.2 F 75 20 113/55 L 100 05/23/17 08:26 05/23/17 17:00 05/23/17 08:26 05/23/17 17:00 05/23/17 08:26 - Medications Medications: Current Medications Acetaminophen (Tylenol 325mg Tab) 325 mg PO Q4H PRN PRN Reason: Pain, moderate (4-7) Last Admin: 05/23/17 08:27 Dose: 325 mg Aspirin (Ecotrin) 81 mg PO DAILY [facility] Last Admin: 05/23/17 08:23 Dose: 81 mg Atorvastatin Calcium (Lipitor) 10 mg PO DIN [facility] Last Admin: 05/23/17 16:36 Dose: 10 mg Codeine Sulfate (Codeine) 30 mg PO Q4 PRN PRN Reason: Pain, severe (8-10) Docusate Sodium (Colace) 100 mg PO TID [facility] Last Admin: 05/23/17 16:36 Dose: 100 mg Ferrous Sulfate (Feosol) 325 mg PO BID [facility] Last Admin: 05/23/17 16:40 Dose: Not Given Finasteride (Proscar) 5 mg PO DAILY [facility] Last Admin: 05/23/17 08:23 Dose: 5 mg Folic Acid (Folic Acid) 2 mg PO DAILY [facility] Last Admin: 05/23/17 08:22 Dose: 2 mg Furosemide (Lasix) 40 mg PO DAILY [facility] Last Admin: 05/23/17 08:23 Dose: 40 mg Hydrogen Peroxide (Hydrogen Peroxide 237ml) 237 ml TP DAILY@0600 [facility] Last Admin: 05/23/17 06:24 Dose: 237 ml Metoprolol Tartrate (Lopressor) 50 mg PO Q6 [facility] Last Admin: 05/23/17 17:00 Dose: 50 mg Pantoprazole Sodium (Protonix Ec Tab) 40 mg PO 0600 [facility] Last Admin: 05/23/17 06:19 Dose: 40 mg Polyethylene Glycol (Miralax) 17 gm PO DAILY [facility] Last Admin: 05/23/17 08:22 Dose: 17 gm Tamsulosin HCl (Flomax) 0.4 mg PO DAILY [facility] Last Admin: 05/23/17 08:22 Dose: 0.4 mg - Labs Labs: 05/17/17 06:00 05/17/17 06:00 PT 19.7 Seconds (9.8-13.1) H 05/23/17 05:55 INR 1.9 (0.9-1.2) H 05/23/17 05:55 - Head Exam Head Exam: ATRAUMATIC, NORMAL INSPECTION, NORMOCEPHALIC - Eye Exam Eye Exam: EOMI, Normal appearance Pupil Exam: NORMAL ACCOMODATION, PERRL - ENT Exam ENT Exam: Mucous Membranes Moist, Normal Exam - Neck Exam Neck Exam: Normal Inspection - Respiratory Exam Respiratory Exam: NORMAL BREATHING PATTERN - Cardiovascular Exam Cardiovascular Exam: REGULAR RHYTHM - GI/Abdominal Exam GI & Abdominal Exam: Normal Bowel Sounds - Rectal Exam Rectal Exam: NORMAL INSPECTION - Exam External exam: NORMAL EXTERNAL EXAM - Extremities Exam Extremities Exam: Full ROM, Normal Inspection - Back Exam Back Exam: NORMAL INSPECTION - Neurological Exam Neurological Exam: Alert, Awake - Psychiatric Exam Psychiatric exam: Normal Affect - Skin Skin Exam: Normal Color Assessment and Plan (1) BPH (benign prostatic hyperplasia) Status: Acute (2) DVT prophylaxis Status: Acute (3) CAD (coronary artery disease) Status: Chronic (4) Chronic atrial fibrillation Status: Chronic (5) Multiple contusions Status: Acute (6) Status post total hip replacement, right Assessment & Plan: plan to continue with range of motion , strengthening transfers and gait training, monitor, pain, skin, bowel and bladder Status: Acute (7) Anemia Status: Chronic
[2017-05-24] MEDS: Pantoprazole 40 mg EC Tab PO SCH (06:02)
[2017-05-24] MEDS: Hydrogen Peroxide 237 ML SOL TP SCH (06:02)
[2017-05-24] MEDS: POLYETHYLENE GLYCOL 3350 17 GM/Dose PACKET PO SCH (08:31)
--- NOTE | 2017-05-24 10:07 | CP.PCM.PN ---
Subjective - Date & Time of Evaluation Date of Evaluation: 05/24/17 Time of Evaluation: 10:00 - Subjective Subjective: Patient seen and examined bedside. Feeling well. Denies any pain. Hemodynamically stable, afebrile. No acute issues overnight Objective - Vital Signs/Intake and Output Vital Signs (last 24 hours): Temp Pulse Resp BP Pulse Ox 97.8 F 70 20 122/66 100 05/24/17 09:00 05/24/17 09:00 05/24/17 09:00 05/24/17 09:00 05/24/17 07:55 - Medications Medications: Current Medications Acetaminophen (Tylenol 325mg Tab) 325 mg PO Q4H PRN PRN Reason: Pain, moderate (4-7) Last Admin: 05/24/17 08:29 Dose: 325 mg Aspirin (Ecotrin) 81 mg PO DAILY [facility] Last Admin: 05/24/17 08:31 Dose: 81 mg Atorvastatin Calcium (Lipitor) 10 mg PO DIN [facility] Last Admin: 05/23/17 16:36 Dose: 10 mg Codeine Sulfate (Codeine) 30 mg PO Q4 PRN PRN Reason: Pain, severe (8-10) Docusate Sodium (Colace) 100 mg PO TID [facility] Last Admin: 05/24/17 08:30 Dose: 100 mg Ferrous Sulfate (Feosol) 325 mg PO BID [facility] Last Admin: 05/24/17 08:32 Dose: Not Given Finasteride (Proscar) 5 mg PO DAILY [facility] Last Admin: 05/24/17 08:30 Dose: 5 mg Folic Acid (Folic Acid) 2 mg PO DAILY [facility] Last Admin: 05/24/17 08:30 Dose: 2 mg Furosemide (Lasix) 40 mg PO DAILY [facility] Last Admin: 05/24/17 08:31 Dose: 40 mg Hydrogen Peroxide (Hydrogen Peroxide 237ml) 237 ml TP DAILY@0600 [facility] Last Admin: 05/24/17 06:02 Dose: 237 ml Metoprolol Tartrate (Lopressor) 50 mg PO Q6 [facility] Last Admin: 05/24/17 06:04 Dose: 50 mg Pantoprazole Sodium (Protonix Ec Tab) 40 mg PO 0600 [facility] Last Admin: 05/24/17 06:02 Dose: 40 mg Polyethylene Glycol (Miralax) 17 gm PO DAILY [facility] Last Admin: 05/24/17 08:31 Dose: 17 gm Tamsulosin HCl (Flomax) 0.4 mg PO DAILY [facility] Last Admin: 05/24/17 08:30 Dose: 0.4 mg - Labs Labs: 05/17/17 06:00 05/17/17 06:00 PT 21.4 Seconds (9.8-13.1) H 05/24/17 06:10 INR 2.1 (0.9-1.2) H 05/24/17 06:10 - Constitutional Appears: Well, Non-toxic, No Acute Distress - Head Exam Head Exam: ATRAUMATIC, NORMAL INSPECTION, NORMOCEPHALIC - Eye Exam Eye Exam: EOMI, Normal appearance, PERRL Pupil Exam: NORMAL ACCOMODATION - ENT Exam ENT Exam: Mucous Membranes Moist, Normal Exam - Neck Exam Neck Exam: Full ROM, Normal Inspection - Respiratory Exam Respiratory Exam: Clear to Ausculation Bilateral, NORMAL BREATHING PATTERN. absent: Rales, Rhonchi, Wheezes - Cardiovascular Exam Cardiovascular Exam: Irregular Rhythm, +S1, +S2. absent: JVD - GI/Abdominal Exam GI & Abdominal Exam: Soft, Normal Bowel Sounds. absent: Distended, Guarding, Tenderness, Rebound - Rectal Exam Rectal Exam: Deferred - Extremities Exam Extremities Exam: Full ROM, Normal Capillary Refill, Normal Inspection. absent : Calf Tenderness, Pedal Edema - Back Exam Back Exam: NORMAL INSPECTION - Neurological Exam Neurological Exam: Alert, Awake, CN II-XII Intact, Oriented x3 - Psychiatric Exam Psychiatric exam: Normal Affect, Normal Mood - Skin Skin Exam: Dry, Intact, Pallor, Warm Assessment and Plan - Assessment and Plan (Free Text) Assessment: 61 yo male with history of AFib, CAD, HLD, HTN, Gastric by pass, BPH, OA and Anemia had right THR on 05/09/2017 at [facility] [place] after failing conservative management for 2 years. Patient was transferred to [facility] and was admitted in acute rehab for intensive physical therapy. 1. Status post total hip replacement, right participating with PT and pain is well controlled continue PT/OT 2. CAD (coronary artery disease) asymptomatic. continue ASA, Lipitor and Metoprolol 3.A-fib rate controlled at present but sometimes goes into RVR during therapy. continue Metoprolol 50mg PO q 8hrs. Coumadin 7 mg PO today since INR 2.1. PT/INR in am. 4 Anemia chronic , iron deficiency on venofer IV infusions as out poatient and follows up with mortgage banker Patient has malabsorption disorder of iron . d/c Po form Hgb: 9.4, stable 5. DVt prophylaxis on coumadin
--- NOTE | 2017-05-24 11:52 | PSY.TMCNF ---
Nursing - Vital Signs Vital Signs (Last 8 hours): Vital Signs 05/24/17 05/24/17 05/24/17 06:04 07:55 08:31 Temperature 97.8 F Pulse Rate 67 70 Respiratory 20 Rate Blood Pressure 117/64 126/66 122/66 O2 Sat by Pulse 100 Oximetry 05/24/17 09:00 Temperature 97.8 F Pulse Rate 70 Respiratory 20 Rate Blood Pressure 122/66 O2 Sat by Pulse Oximetry Pain: 3 - Precautions: Precautions: Fall Prevention, Hip Precautions - Medications/Other Issues Comment: Alternating francy removed by surgeon, Still has sutures alternating and steristrips. Remaining sutures may be removed this week per surgeon. - Consults Comment: Dr. Wilkinson - Skin Incision Site: right hip Dressing Status: Clean, Dry, Intact Incision: Well Approximated, Sutures Intact, Steri-Strips Intact, No Drainage Noted Incision Line Treatment: Cleanse right hip i/l with 50/50NS +H2O2 and cover with DSD daily. - Toileting Toileting: Supervision - Bladder Management Bladder Pattern: Normal Voiding Method: Toilet, Urinal Bladder Management: Modified Independent Frequency of Accidents: 0 - Bowel Management Bowel Pattern: Normal Bowel Management: Modified Independent Frequency of Accidents: 0 - Transfers Transfers: Modified Independent - ADL's ADL's: Supervision - Pain Management Comments: Tylenol PRN - Patient/Family Teaching Comments: CARE POST THR AND SAFETY PRECAUTIONS - Goals/Time Frame Comments: PER MULTIDISCIPLINARY CARE PLAN GOALS - Provider Provider: DARYL JAVIERN RN CRRN Physical Therapy - Bed Mobility Bed Mobility: Supervision, Verbal Cues - Transfers Sit to Stand: Modified Independent, Supervision - Ambulation Level of Assistance: Supervision, Verbal Cues Distance (ft.): 200 Assistive Devices: Crutches - Stair Negotiation Stairs: Level of Assistance: Modified Independent, Supervision, Verbal Cues Stairs: Assistive Devices: Left Handrail, Right Handrail, Crutches - Standing Balance Static Stand: Supervision Dynamic Stand: Supervision, Contact Guard Assist Comment: crutches - Pain Management Techniques: Medication, Ice, Position Change, Distraction, Inactivity - Insight/Carryover Insight/Carryover: Good - Patient/Family Education Comment: Total hip precautions, adaptive equipment, DME, safety and fall prevention - Assessment/Plan Assessment: Pt is engaged in independent leisure tasks throughout his free time. Pt was provided with crossword puzzles and sudoku puzzles to complete independently. Pt enjoys going outside for diversion and engage in discussions about multiple topics. Pt's mood continues to be stable-positive. - Goals Timeframe: 1 week Goals: MOD I toileting. MOD I toilet txfers. MOD I UE dressing. MOD I LE dressing. MOD I bathing. MOD I shower txfers. Independent with grooming. independent with feeding - Provider License Number: [id number] Occupational Therapy - Arousal/Attention/Orientation Patient Orientation: Person, Place, Time, Appropriate to Age, Appropriate to Situation - ADL/IADL Self Feeding: Independent Grooming: Independent Bathing-Upper Extremity: Supervision, Verbal Cues, Set-up Help Bathing-Lower Extremity: Verbal Cues, Set-up Help, Minimal Assistance Dressing-Upper Extremity: Supervision, Verbal Cues, Set-up Help Dressing-Lower Extremity: Supervision, Verbal Cues, Set-up Help - Sitting Balance Static Sitting: Independent without upper extremity support Dynamic Sitting: Reaches across midline, Reaches within base of support - Transfers Wheelchair to Bed Transfers: Supervision, Verbal Cues, Set-up Help Toilet Transfers: Supervision, Verbal Cues, Set-up Help Tub Transfers: Verbal Cues, Set-up Help, Contact Guard - Wheelchair Management Level of Assistance: Not Applicable - Upper Extremity Status Right Upper Extremity Comment: Pt reports prior damage to R shoulder however ROM is WFL Left Upper Extremity Comment: ROM WFL - Pain Alleviating Techniques: Medication, Ice, Position Change, Distraction, Inactivity - Insight/Carryover Insight/Carryover: Good - Patient/Family Education Comment: Total hip precautions, adaptive equipment, DME, safety and fall prevention - Assessment/Plan Assessment: Pt is engaged in independent leisure tasks throughout his free time. Pt was provided with crossword puzzles and sudoku puzzles to complete independently. Pt enjoys going outside for diversion and engage in discussions about multiple topics. Pt's mood continues to be stable-positive. - Goals Timeframe: 1 week Goals: MOD I toileting. MOD I toilet txfers. MOD I UE dressing. MOD I LE dressing. MOD I bathing. MOD I shower txfers. Independent with grooming. independent with feeding - Provider Therapist: Barbara Fitzpatrick License Number: [id number] Speech Therapy - Plan Assessment: Pt is engaged in independent leisure tasks throughout his free time. Pt was provided with crossword puzzles and sudoku puzzles to complete independently. Pt enjoys going outside for diversion and engage in discussions about multiple topics. Pt's mood continues to be stable-positive. Recreational Therapy - Participation Participation: Participates in Individual and/or Group Sessions - Attendance Attendance: Daily - Activities Leisure Activities: Socializing - Socialization Level of Socialization: Initiates/interacts freely with care givers and peer - Diversional Time Diversional Time: television, socializing, has puzzles in room - Assessment Assessment/Plan: Pt is engaged in independent leisure tasks throughout his free time. Pt was provided with crossword puzzles and sudoku puzzles to complete independently. Pt enjoys going outside for diversion and engage in discussions about multiple topics. Pt's mood continues to be stable-positive. Problems Currently Limiting Participation: pain, decrease leisure awareness level Goals and Time Frame: Pt will be encouraged to participate in 1:1 and group recreation therapy sessions 3-5x week to improve activity tolerance level, arousal level, and leisure awareness level. - Provider Therapist: Kiah Gao, TRAFFIC II MANAGER #[id number] Nutrition - Current Diet Current Diet/ Supplement/ Feedings: 2 grama Na low fat/low cholesterol diet - Appetite Percent Meal Consumed: 50-74% - Comments Comments: CARE POST THR AND SAFETY PRECAUTIONS - Assessment/Goals/Time Frame Assessment/Goals/Time Frame: Alternating francy removed by surgeon, Still has sutures alternating and steristrips. Remaining sutures may be removed this week per surgeon. - Provider Provider: Gabbi Baldwin RD Case Management - Discharge Plan Discharge Plan: Home alone Rehabilitation Plan - Treatment Plan Treatment Plan: Physical Therapy, Occupational Therapy, Dietary, Patient/Family Education - Recommendation Recommendation: Physical Therapy, Occupational Therapy, Dietary, Patient/Family Education - Discharge Plan Discharge to: Home (Dc 29 outpatient Pt)
[2017-05-25] MEDS: Pantoprazole 40 mg EC Tab PO SCH (05:55)
[2017-05-25] MEDS: POLYETHYLENE GLYCOL 3350 17 GM/Dose PACKET PO SCH (08:14)
--- NOTE | 2017-05-25 17:36 | CP.PCM.PN ---
Subjective - Date & Time of Evaluation Date of Evaluation: 05/24/17 Time of Evaluation: 10:30 - Subjective Subjective: patient with no acute hip pain Objective - Vital Signs/Intake and Output Vital Signs (last 24 hours): Temp Pulse Resp BP Pulse Ox 98.1 F 100 H 20 134/71 100 05/25/17 08:38 05/25/17 12:21 05/25/17 08:38 05/25/17 12:21 05/25/17 08:38 - Medications Medications: Current Medications Acetaminophen (Tylenol 325mg Tab) 325 mg PO Q4H PRN PRN Reason: Pain, moderate (4-7) Last Admin: 05/25/17 08:18 Dose: 325 mg Aspirin (Ecotrin) 81 mg PO DAILY [facility] Last Admin: 05/25/17 08:15 Dose: 81 mg Atorvastatin Calcium (Lipitor) 10 mg PO DIN [facility] Last Admin: 05/24/17 17:20 Dose: 10 mg Codeine Sulfate (Codeine) 30 mg PO Q4 PRN PRN Reason: Pain, severe (8-10) Docusate Sodium (Colace) 100 mg PO TID [facility] Last Admin: 05/25/17 12:22 Dose: 100 mg Finasteride (Proscar) 5 mg PO DAILY [facility] Last Admin: 05/25/17 08:15 Dose: 5 mg Folic Acid (Folic Acid) 2 mg PO DAILY [facility] Last Admin: 05/25/17 08:15 Dose: 2 mg Furosemide (Lasix) 40 mg PO DAILY [facility] Last Admin: 05/25/17 08:14 Dose: 40 mg Metoprolol Tartrate (Lopressor) 50 mg PO Q6 [facility] Last Admin: 05/25/17 12:21 Dose: 50 mg Pantoprazole Sodium (Protonix Ec Tab) 40 mg PO 0600 [facility] Last Admin: 05/25/17 05:55 Dose: 40 mg Polyethylene Glycol (Miralax) 17 gm PO DAILY [facility] Last Admin: 05/25/17 08:14 Dose: 17 gm Tamsulosin HCl (Flomax) 0.4 mg PO DAILY [facility] Last Admin: 05/25/17 08:15 Dose: 0.4 mg - Labs Labs: 05/17/17 06:00 05/17/17 06:00 PT 22.5 Seconds (9.8-13.1) H 05/25/17 06:30 INR 2.2 (0.9-1.2) H 05/25/17 06:30 - Head Exam Head Exam: ATRAUMATIC, NORMAL INSPECTION, NORMOCEPHALIC - Eye Exam Eye Exam: EOMI, Normal appearance Pupil Exam: NORMAL ACCOMODATION, PERRL - ENT Exam ENT Exam: Mucous Membranes Moist - Neck Exam Neck Exam: Normal Inspection - Respiratory Exam Respiratory Exam: Clear to Ausculation Bilateral - Cardiovascular Exam Cardiovascular Exam: REGULAR RHYTHM - GI/Abdominal Exam GI & Abdominal Exam: Normal Bowel Sounds - Rectal Exam Rectal Exam: NORMAL INSPECTION - Exam External exam: NORMAL EXTERNAL EXAM - Extremities Exam Extremities Exam: Normal Capillary Refill, Normal Inspection - Back Exam Back Exam: NORMAL INSPECTION - Neurological Exam Neurological Exam: Alert, Awake Neuro motor strength exam: Left Upper Extremity: 4, Right Upper Extremity: 4, Left Lower Extremity: 4, Right Lower Extremity: 3 - Psychiatric Exam Psychiatric exam: Normal Affect - Skin Skin Exam: Normal Color Assessment and Plan (1) BPH (benign prostatic hyperplasia) Status: Acute (2) DVT prophylaxis Status: Acute (3) CAD (coronary artery disease) Status: Chronic (4) Chronic atrial fibrillation Status: Chronic (5) Multiple contusions Status: Acute (6) Status post total hip replacement, right Assessment & Plan: removed sutures from the righ thip without any bleeding, discusssed Dc planning Pt and Ot therapy DC for 29 Status: Acute (7) Anemia Status: Chronic
[2017-05-26] MEDS: Pantoprazole 40 mg EC Tab PO SCH (05:55)
[2017-05-26] MEDS: POLYETHYLENE GLYCOL 3350 17 GM/Dose PACKET PO SCH (08:27)
[2017-05-26 08:39] VITALS: RESP 20; TEMP 97.9; O2SAT 99
--- NOTE | 2017-05-26 09:55 | CP.PCM.DIS ---
Provider - Provider Date of Admission: 05/16/17 17:54 Attending physician: Gamal Barron MD Primary care physician: Hosea Garcia MD Consults: pT/ot CONSULT Time Spent in preparation of Discharge (in minutes): 15 Hospital Course - Lab Results Lab Results: Most Recent Lab Values WBC 7.5 K/uL (4.8-10.8) 05/17/17 06:00 RBC 3.29 Mil/uL (4.40-5.90) L 05/17/17 06:00 Hgb 9.4 g/dL (12.0-18.0) L 05/17/17 06:00 Hct 28.8 % (35.0-51.0) L 05/17/17 06:00 MCV 87.6 fl (80.0-94.0) 05/17/17 06:00 MCH 28.5 pg (27.0-31.0) 05/17/17 06:00 MCHC 32.6 g/dL (33.0-37.0) L 05/17/17 06:00 RDW 18.7 % (11.5-14.5) H 05/17/17 06:00 Plt Count 264 K/uL (130-400) 05/17/17 06:00 MPV 7.3 fl (7.2-11.7) 05/17/17 06:00 Neut % (Auto) 71.2 % (50.0-75.0) 05/17/17 06:00 Lymph % (Auto) 14.5 % (20.0-40.0) L 05/17/17 06:00 Christian % (Auto) 8.7 % (0.0-10.0) 05/17/17 06:00 Eos % (Auto) 5.2 % (0.0-4.0) H 05/17/17 06:00 Baso % (Auto) 0.4 % (0.0-2.0) 05/17/17 06:00 Neut # 5.3 K/uL (1.8-7.0) 05/17/17 06:00 Lymph # 1.1 K/uL (1.0-4.3) 05/17/17 06:00 Christian # 0.7 K/uL (0.0-0.8) 05/17/17 06:00 Eos # 0.4 K/uL (0.0-0.7) 05/17/17 06:00 Baso # 0.0 K/uL (0.0-0.2) 05/17/17 06:00 PT 20.6 Seconds (9.8-13.1) H 05/26/17 05:30 INR 2.0 (0.9-1.2) H 05/26/17 05:30 Sodium 136 mmol/l (132-148) 05/17/17 06:00 Potassium 4.1 MMOL/L (3.6-5.0) 05/17/17 06:00 Chloride 101 mmol/L (98-107) 05/17/17 06:00 Carbon Dioxide 28 mmol/L (22-30) 05/17/17 06:00 Anion Gap 11 (10-20) 05/17/17 06:00 BUN 13 mg/dl (9-20) 05/17/17 06:00 Creatinine 0.7 mg/dL (0.8-1.5) L 05/17/17 06:00 Est GFR ( Amer) > 60 05/17/17 06:00 Est GFR (Non-Af Amer) > 60 05/17/17 06:00 Random Glucose 106 mg/dL (75-110) 05/17/17 06:00 Calcium 8.4 mg/dL (8.4-10.2) 05/17/17 06:00 - Hospital Course Hospital Course: 61 yo male with history of AFib, CAD, HLD, HTN, Gastric by pass, BPH, OA and [place]emia [place] [facility] [place] for 2 [place]. Patient was transferred to [facility] and was admitted in acute rehab for intensive physical therapy.He received physical therapy , participated well at today to be discharged home with follow up with his PMD and ortho. He will continue physical therapy as out patient at [facility]. He will continue to take Coumadin 10 mg Po daily for stroke prevention due to Afib and will follow up with his PMD for PT/INr monitoring in 3 days. He was given Codeine PO PRN for pain control.Informed on side effects of narcotics like drowsiness , constipation.patient was advised not to drive or operate any heavy machinery while taking such medications. 1. Status post total hip replacement, right participatied with PT and pain is well controlled continue PT/OTas out patient follow up with ortho in 3 weeks continue Codeine PRN for severe pain control Avoid driving or operating heavy machinery wghile on narcotics Colace for constipation 2. CAD (coronary artery disease) asymptomatic. continue ASA, Lipitor and Metoprolol . patient states that he has not been on Metoprolol whil eat home and will follow up with his PMD upon discharge to decide bill emeds 3.A-fib rate controlled at present but sometimes goes into RVR during therapy. was started on Metoprolol 50mg PO q 8hrs. to follow up with PMD about continuation of treatment as out patient Coumadin 10 mg PO today follow up with PMD for PT/INR monitoring 4 Anemia chronic , iron deficiency received venofer IV whil en hospitall and has been receiving as out patient with his conference translator Patient has malabsorption disorder of iron . d/c Po form follow up with his conference translator Hgb: 9.4, stable 5. DVt prophylaxis on coumadin Discharge Exam - Head Exam Head Exam: ATRAUMATIC, NORMAL INSPECTION, NORMOCEPHALIC - Eye Exam Eye Exam: EOMI, Normal appearance, PERRL Pupil Exam: NORMAL ACCOMODATION - ENT Exam ENT Exam: Mucous Membranes Moist, Normal Exam - Neck Exam Neck exam: Full Rom, Normal Inspection - Respiratory Exam Respiratory Exam: Clear to PA & Lateral, NORMAL BREATHING PATTERN. absent: Rales, Rhonchi, Wheezes - Cardiovascular Exam Cardiovascular Exam: Irregular Rhythm, +S1, +S2. absent: JVD - GI/Abdominal Exam GI & Abdominal Exam: Normal Bowel Sounds, Soft. absent: Distended, Guarding, Rebound, Tenderness - Rectal Exam Rectal Exam: Deferred - Extremities Exam Extremities exam: normal inspection, pedal pulses present Additional comments: right hip surgical incision intact - Back Exam Back exam: NORMAL INSPECTION - Neurological Exam Neurological exam: Alert, CN II-XII Intact, Oriented x3, Reflexes Normal - Psychiatric Exam Psychiatric exam: Normal Affect, Normal Mood - Skin Skin Exam: Dry, Intact, Pallor, Warm Discharge Plan - Discharge Medications Prescriptions: Codeine 30 mg PO Q4 PRN #30 tab PRN Reason: Pain, Moderate (4-7) Docusate [Colace] 100 mg PO TID #60 cap Warfarin [Coumadin] 10 mg PO 1800 #14 tab - Follow Up Plan Condition: GOOD Disposition: HOME/ ROUTINE Patient education suggested?: Yes Instructions: Patient Safety in the Hospital (GEN), Total Hip Replacement (DC) , Total Hip Replacement (GEN) Referrals: Hosea Garcia MD [Primary Care Provider] -
[2017-05-26 10:05] VITALS: BP 120/70
[2017-05-26 14:25] VITALS: PULSE 78
--- NOTE | 2017-05-26 15:59 | PN ---
PHYSIATRY PROGRESS NOTE SUBJECTIVE: The patient is feeling fine. The patient will be discharged today. PHYSICAL EXAMINATION VITAL SIGNS: Stable. NECK: Supple. CHEST: Symmetrical. HEART: Sounds S1 and S2. ABDOMEN: Benign. EXTREMITIES: No clubbing, cyanosis or edema. IMPRESSION: Right total hip replacement secondary to osteoarthritis, myocardial infraction, atrial fibrillation, coronary artery disease, anemia. PLAN: Plan for discharge today. The patient's sutures and francy were taken out on Monday. The patient is now getting ready for discharge today. Discussed discharge planning with the patient. Sathish Wilkinson MD
== END 2017-05-26 12:00 | disposition home or self-care (01) | DRG 560 ==
PROC: F07Z9FZ Gait Training/Functional Ambulation Treatment using Assistive, Adaptive, Supportive or Protective Equipment (ICD-10-PCS; principal; 2017-05-16)
PROC: F08Z4FZ Home Management Treatment using Assistive, Adaptive, Supportive or Protective Equipment (ICD-10-PCS; 2017-05-16)
PROC: F07M6FZ Therapeutic Exercise Treatment of Musculoskeletal System - Whole Body using Assistive, Adaptive, Supportive or Protective Equipment (ICD-10-PCS; 2017-05-16)
PROC: 3E0234Z Introduction of Serum, Toxoid and Vaccine into Muscle, Percutaneous Approach (ICD-10-PCS; 2017-05-16)
DX: Z47.1 Aftercare following joint replacement surgery (principal); K90.9 Intestinal malabsorption, unspecified; I10 Essential (primary) hypertension; E61.1 Iron deficiency; D64.9 Anemia, unspecified; Z96.641 Presence of right artificial hip joint; E66.9 Obesity, unspecified; Z98.84 Bariatric surgery status; E78.00 Pure hypercholesterolemia, unspecified; E78.5 Hyperlipidemia, unspecified; I25.10 Atherosclerotic heart disease of native coronary artery without angina pectoris; I25.2 Old myocardial infarction; I48.2 Chronic atrial fibrillation; K21.9 Gastro-esophageal reflux disease without esophagitis; M16.11 Unilateral primary osteoarthritis, right hip; N40.0 Benign prostatic hyperplasia without lower urinary tract symptoms; R79.1 Abnormal coagulation profile; Z79.01 Long term (current) use of anticoagulants; Z87.01 Personal history of pneumonia (recurrent); Z95.5 Presence of coronary angioplasty implant and graft; K29.70 Gastritis, unspecified, without bleeding; K44.9 Diaphragmatic hernia without obstruction or gangrene; K82.9 Disease of gallbladder, unspecified; Z68.31 Body mass index [BMI] 31.0-31.9, adult; Z23 Encounter for immunization